=== PATIENT | male | born 1975 | race African-American/Black ===

== ENCOUNTER 2020-06-01 14:17 | Inpatient (IN) | payer MEDICARE ==
[~2020-06-01] VITALS: Ht 182.9 cm; Wt 80.3 kg
[2020-06-01] MEDS ORDERED: MORPHINE SULFATE 4 MG/ML, 1ML IVPush PRN (15:30)
[2020-06-01 15:45] LABS: BASOPHILS # (AUTO) 0.03 x10^3/uL (0-0.1); BASOPHILS % (AUTO) 1 % (0-1); EOSINOPHILS # (AUTO) 0.06 x10^3/uL (0-0.4); EOSINOPHILS % (AUTO) 1 % (1-7); LYMPHOCYTES # (AUTO) 2.16 x10^3/uL (1-3.4); LYMPHOCYTES % (AUTO) 34 % (22-44); MD NO; MEAN CORPUSCULAR HEMOGLOBIN 27.1 pg (27.5-34.5); MEAN CORPUSCULAR HGB CONC 32.7 g/dL (33.2-36.2); MEAN CORPUSCULAR VOLUME 82.9 fL (81-97); MEAN PLATELET VOLUME 9.1 fL (7.4-10.4); MONOCYTES # (AUTO) 0.47 x10^3/uL (0.2-0.8); MONOCYTES % (AUTO) 8 % (2-9); NEUTROPHILS # (AUTO) 3.56 x10^3/uL (1.8-6.8); NEUTROPHILS % (AUTO) 57 % (42-75); PLATELET COUNT 231 x10^3/uL (130-400); RED BLOOD COUNT 4.03 x10^6/uL (4.38-5.82); RED CELL DISTRIBUTION WIDTH 16.3 % (9.4-14.8)
--- NOTE | 2020-06-01 15:50 | NUR ---
TASK RN. LAB AT BEDSIDE. PT AWAITING CT. REPORTS 04/16 HEAD PAIN, TO MEDICATE PER MD ORDERS. CALL LIGHT IN REACH. FALL PRECAUTIONS IN PLACE. REG AT BEDSIDE
[2020-06-01 15:57] LABS: ANION GAP 10 mmol/L (5-15); CALCIUM 9.3 mg/dL (8.5-10.1); CHLORIDE 112 mmol/L (98-107)
[2020-06-01] MEDS ORDERED: ONDANSETRON 2MG/ML, 2ML IVPush ONE (16:00)
[2020-06-01] MEDS ORDERED: ONDANSETRON 2MG/ML, 2ML ONE (16:00)
[2020-06-01] MEDS ORDERED: MORPHINE SULFATE 4 MG/ML, 1ML ONE (16:00)
[2020-06-01 16:01] LABS: ALANINE AMINOTRANSFERASE 17 U/L (12-78); ALKALINE PHOSPHATASE 168 U/L (45-117); BILIRUBIN,TOTAL 0.8 mg/dL (0.2-1.0); CREATININE 2.97 mg/dL (0.7-1.3); TOTAL PROTEIN 8.3 g/dL (6.4-8.2)
--- NOTE | 2020-06-01 16:13 | NUR ---
TASK RN. PT MEDICATED NOTED IN EMAR FOR 04/16 PAIN. RESTING IN POSITION OF COMFORT. DENIES NEED TO USE RESTROOM. VSS. SR ON MONITOR. CALL LIGHT IN REACH. FALL PRECAUTIONS IN PLACE. AWAITING CT.
--- NOTE | 2020-06-01 16:17 | NUR ---
TASK RN. PT TO CT
[2020-06-01] MEDS ORDERED: SODIUM CHLORIDE FLUSH 10ML SYR IVF ONE (16:30)
--- NOTE | 2020-06-01 16:38 | NUR ---
TASK RN CONT TO ASSIST PRIMARY RN YOHANA. PT BACK FROM CT. REPORTS PAIN "MUCH BETTER." RATES PAIN 5-6/10. LIGHTS REMAIN DIMMED FOR COMFORT. AWAITING RECHECK. VSS. SR ON MONITOR. DENIES NEED TO USE RESTROOM. CALL LIGHT IN REACH. FALL PRECUATIONS IN PLACE.
--- NOTE | 2020-06-01 17:32 | NUR ---
Patients medical records from [facility] requestedd. Conformation from fax recveived and placed with chart.
[2020-06-01] MEDS ORDERED: ATOR40TA78 PO (17:56)
[2020-06-01] MEDS ORDERED: METO200T47 PO (17:56)
[2020-06-01] MEDS ORDERED: GABA300C PO (17:56)
[2020-06-01] MEDS ORDERED: LISI-167 PO (17:56)
[2020-06-01] MEDS ORDERED: FLUC200T4 PO (17:56)
[2020-06-01] MEDS ORDERED: VORI200T2 PO (17:56)
[2020-06-01] MEDS ORDERED: SODIUM CHLORIDE FLUSH 10ML SYR IVF PRN (18:30)
[2020-06-01] MEDS ORDERED: IBUPROFEN 600 MG TABLET PO PRN (20:00)
[2020-06-01] MEDS ORDERED: BISACODYL 10 MG SUPP PR PRN (20:00)
[2020-06-01] MEDS ORDERED: HYDROmorphone 2 MG/ML, 1ML IVPush PRN (20:00)
[2020-06-01] MEDS ORDERED: GABAPENTIN 300 MG CAPSULE PO PRN (20:00)
[2020-06-01] MEDS ORDERED: ONDANSETRON 2MG/ML, 2ML IVPush PRN (20:00)
[2020-06-01 20:47] VITALS: BP 126/78
[2020-06-01] MEDS ORDERED: FLUCONAZOLE 200 MG TABLET PO SCH (21:00)
[2020-06-01] MEDS: METOPROLOL SUCCINATE 100 MG TAB.ER.24H PO SCH (22:15)
[2020-06-01] MEDS: ATORVASTATIN 20 MG TABLET PO SCH (22:27)
[2020-06-01] MEDS: VORICONAZOLE 200 MG TABLET PO SCH (22:28)
[2020-06-01] MEDS: POTASSIUM CHLORIDE 20 MEQ in LACTATED RINGERS 1,000 ML IV SCH (22:28)
[2020-06-01] MEDS ORDERED: VORICONAZOLE MC SCH (22:30)
[2020-06-01] MEDS ORDERED: FLUCONAZOLE MC SCH (22:30)
[2020-06-01 22:54] LABS: ANION GAP 11 mmol/L (5-15); CALCIUM 9.4 mg/dL (8.5-10.1); CHLORIDE 115 mmol/L (98-107); CREATININE 2.71 mg/dL (0.7-1.3)
[2020-06-02 00:21] VITALS: BP 112/72
[2020-06-02 06:16] LABS: ALANINE AMINOTRANSFERASE 14 U/L (12-78); ALBUMIN 3.4 g/dL (3.4-5.0); ANION GAP 8 mmol/L (5-15); CALCIUM 8.7 mg/dL (8.5-10.1); CHLORIDE 116 mmol/L (98-107); CREATININE 2.77 mg/dL (0.7-1.3)
[2020-06-02 06:18] LABS: ALKALINE PHOSPHATASE 142 U/L (45-117); BILIRUBIN,TOTAL 0.3 mg/dL (0.2-1.0); TOTAL PROTEIN 7.2 g/dL (6.4-8.2)
[2020-06-02 07:05] VITALS: BP 106/63
[2020-06-02 08:50] VITALS: BP 112/77
[2020-06-02] MEDS: LISINOPRIL 10 MG TABLET PO SCH (09:00)
[2020-06-02] MEDS: VORICONAZOLE 200 MG TABLET PO SCH ×2 (09:00→20:41)
[2020-06-02] MEDS ORDERED: ACETAMINOPHEN 325 MG TABLET PO PRN (09:30)
[2020-06-02] MEDS: METOPROLOL SUCCINATE 100 MG TAB.ER.24H PO SCH ×2 (09:58→20:44)
[2020-06-02] MEDS: OXYcodone/APAP 5/325MG TABLET PO PRN ×3 (10:07→23:36)
[2020-06-02] MEDS: POTASSIUM CHLORIDE 20 MEQ in LACTATED RINGERS 1,000 ML IV SCH (13:28)
[2020-06-02 14:07] VITALS: BP 109/68
[2020-06-02 20:30] VITALS: BP 127/81
[2020-06-02] MEDS: ATORVASTATIN 20 MG TABLET PO SCH (20:43)
[2020-06-03 00:40] VITALS: BP 110/74
[2020-06-03 06:44] LABS: BASOPHILS # (AUTO) 0.03 x10^3/uL (0-0.1); BASOPHILS % (AUTO) 1 % (0-1); EOSINOPHILS # (AUTO) 0.18 x10^3/uL (0-0.4); EOSINOPHILS % (AUTO) 3 % (1-7); LYMPHOCYTES # (AUTO) 2.56 x10^3/uL (1-3.4); LYMPHOCYTES % (AUTO) 45 % (22-44); MD NO; MEAN CORPUSCULAR HEMOGLOBIN 27.2 pg (27.5-34.5); MEAN CORPUSCULAR HGB CONC 32.3 g/dL (33.2-36.2); MEAN CORPUSCULAR VOLUME 84.2 fL (81-97); MEAN PLATELET VOLUME 9.7 fL (7.4-10.4); MONOCYTES # (AUTO) 0.44 x10^3/uL (0.2-0.8); MONOCYTES % (AUTO) 8 % (2-9); NEUTROPHILS # (AUTO) 2.53 x10^3/uL (1.8-6.8); NEUTROPHILS % (AUTO) 44 % (42-75); PLATELET COUNT 200 x10^3/uL (130-400); RED BLOOD COUNT 3.98 x10^6/uL (4.38-5.82); RED CELL DISTRIBUTION WIDTH 16.7 % (9.4-14.8)
[2020-06-03 06:46] LABS: ANION GAP 6 mmol/L (5-15); CALCIUM 9.2 mg/dL (8.5-10.1); CHLORIDE 114 mmol/L (98-107); CREATININE 2.46 mg/dL (0.7-1.3)
[2020-06-03 08:47] VITALS: BP 124/97
[2020-06-03] MEDS: METOPROLOL SUCCINATE 100 MG TAB.ER.24H PO SCH ×2 (09:21→20:14)
[2020-06-03] MEDS: VORICONAZOLE 200 MG TABLET PO SCH ×2 (09:22→20:14)
[2020-06-03] MEDS: OXYcodone/APAP 5/325MG TABLET PO PRN ×2 (09:23→15:57)
[2020-06-03] MEDS: LISINOPRIL 10 MG TABLET PO SCH (09:23)
[2020-06-03 15:49] VITALS: BP 127/84
[2020-06-03 18:46] VITALS: BP 124/79
[2020-06-03] MEDS: ATORVASTATIN 20 MG TABLET PO SCH (20:14)
[2020-06-03 20:27] LABS: BASOPHILS # (AUTO) 0.03 x10^3/uL (0-0.1); BASOPHILS % (AUTO) 1 % (0-1); EOSINOPHILS # (AUTO) 0.06 x10^3/uL (0-0.4); EOSINOPHILS % (AUTO) 1 % (1-7); LYMPHOCYTES % (AUTO) 39 % (22-44); MD NO; MEAN CORPUSCULAR HEMOGLOBIN 27.1 pg (27.5-34.5); MEAN CORPUSCULAR HGB CONC 32.4 g/dL (33.2-36.2); MEAN CORPUSCULAR VOLUME 83.6 fL (81-97); MEAN PLATELET VOLUME 9.3 fL (7.4-10.4); MONOCYTES # (AUTO) 0.32 x10^3/uL (0.2-0.8); MONOCYTES % (AUTO) 6 % (2-9); NEUTROPHILS # (AUTO) 3.02 x10^3/uL (1.8-6.8); NEUTROPHILS % (AUTO) 54 % (42-75); PLATELET COUNT 248 x10^3/uL (130-400); RED BLOOD COUNT 4.37 x10^6/uL (4.38-5.82); RED CELL DISTRIBUTION WIDTH 16.5 % (9.4-14.8)
[2020-06-03 20:35] LABS: ALANINE AMINOTRANSFERASE 15 U/L (12-78); ANION GAP 6 mmol/L (5-15); CALCIUM 9.7 mg/dL (8.5-10.1); CHLORIDE 112 mmol/L (98-107); CREATININE 2.33 mg/dL (0.7-1.3)
[2020-06-03 20:37] LABS: ALKALINE PHOSPHATASE 168 U/L (45-117); BILIRUBIN,TOTAL 0.4 mg/dL (0.2-1.0); TOTAL PROTEIN 8.6 g/dL (6.4-8.2)
[2020-06-03] MEDS ORDERED: BUTALB/APAP/CAFFEINE 50MG/325MG/40MG PO PRN (21:30)
[2020-06-04 00:26] VITALS: BP 114/79
[2020-06-04 08:55] VITALS: BP 131/78
[2020-06-04] MEDS: OXYcodone/APAP 5/325MG TABLET PO PRN ×3 (08:58→22:49)
[2020-06-04] MEDS: METOPROLOL SUCCINATE 100 MG TAB.ER.24H PO SCH ×2 (08:58→20:44)
[2020-06-04] MEDS: LISINOPRIL 10 MG TABLET PO SCH (08:58)
[2020-06-04] MEDS: VORICONAZOLE 200 MG TABLET PO SCH ×2 (08:58→22:43)
[2020-06-04 14:45] VITALS: BP 126/83
[2020-06-04 19:38] VITALS: BP 121/80
[2020-06-04] MEDS: ATORVASTATIN 20 MG TABLET PO SCH (20:44)
[2020-06-05 01:38] VITALS: BP 113/70
[2020-06-05] MEDS ORDERED: ONDANSETRON ODT 4 MG PO PRN (08:00)
[2020-06-05 08:35] LABS: ANION GAP 6 mmol/L (5-15); CALCIUM 9.6 mg/dL (8.5-10.1); CHLORIDE 110 mmol/L (98-107)
[2020-06-05 08:36] LABS: CREATININE 2.51 mg/dL (0.7-1.3)
[2020-06-05] MEDS: METOPROLOL SUCCINATE 100 MG TAB.ER.24H PO SCH ×2 (09:05→20:26)
[2020-06-05] MEDS: LISINOPRIL 10 MG TABLET PO SCH (09:05)
[2020-06-05] MEDS: VORICONAZOLE 200 MG TABLET PO SCH ×2 (09:05→20:27)
[2020-06-05] MEDS: OXYcodone/APAP 5/325MG TABLET PO PRN ×3 (09:10→20:27)
[2020-06-05 09:21] VITALS: BP 110/62
[2020-06-05 13:03] VITALS: BP 123/85
[2020-06-05 18:30] VITALS: BP 127/78
[2020-06-05] MEDS: ATORVASTATIN 20 MG TABLET PO SCH (20:27)
[2020-06-06 02:52] VITALS: BP 127/79
[2020-06-06 08:25] VITALS: BP 115/76
[2020-06-06] MEDS: VORICONAZOLE 200 MG TABLET PO SCH ×2 (08:52→20:14)
[2020-06-06] MEDS: LISINOPRIL 10 MG TABLET PO SCH (08:52)
[2020-06-06] MEDS: METOPROLOL SUCCINATE 100 MG TAB.ER.24H PO SCH ×2 (08:53→20:15)
[2020-06-06] MEDS: OXYcodone/APAP 5/325MG TABLET PO PRN ×2 (12:52→20:15)
[2020-06-06 15:41] VITALS: BP 123/77
[2020-06-06 20:10] VITALS: BP 133/89
[2020-06-06] MEDS: ATORVASTATIN 20 MG TABLET PO SCH (20:14)
[2020-06-07 01:31] VITALS: BP 107/69
[2020-06-07 06:42] LABS: HCT (SEDRATE) 37.9 % (39.2-51.8)
[2020-06-07 06:44] LABS: MEAN CORPUSCULAR HEMOGLOBIN 27.1 pg (27.5-34.5); MEAN CORPUSCULAR HGB CONC 32.2 g/dL (33.2-36.2); MEAN CORPUSCULAR VOLUME 83.9 fL (81-97); MEAN PLATELET VOLUME 9.3 fL (7.4-10.4); PLATELET COUNT 205 x10^3/uL (130-400); RED BLOOD COUNT 4.53 x10^6/uL (4.38-5.82); RED CELL DISTRIBUTION WIDTH 16.1 % (9.4-14.8)
[2020-06-07 06:52] LABS: CALCIUM 9.5 mg/dL (8.5-10.1); CHLORIDE 112 mmol/L (98-107)
[2020-06-07 06:57] LABS: ALANINE AMINOTRANSFERASE 12 U/L (12-78); ALBUMIN 3.6 g/dL (3.4-5.0); ALKALINE PHOSPHATASE 161 U/L (45-117); ANION GAP 6 mmol/L (5-15); BILIRUBIN,TOTAL 0.3 mg/dL (0.2-1.0); C-REACTIVE PROTEIN, QUANT 0.69 mg/dL (0.02-0.49); CREATININE 2.78 mg/dL (0.7-1.3); TOTAL PROTEIN 7.8 g/dL (6.4-8.2)
[2020-06-07 07:15] LABS: MD YES
[2020-06-07 07:17] LABS: <PLATELET ESTIMATE> ADEQUATE; <PLT MORPHOLOGY> NORMAL PLT MORPH; ANISOCYTOSIS 1+; EOS#(MANUAL) 0.23 x10^3/uL (0.0-0.4); EOS% (MANUAL) 4 % (1-7); LYMPH#(MANUAL) 3.31 x10^3/uL (1-3.4); LYMPHS% (MANUAL) 58 % (22-44); MONOS#(MANUAL) 0.34 x10^3/uL (0.3-2.7); MONOS% (MANUAL) 6 % (2-9); SEG#(MANUAL) 1.82 x10^3/uL (1.8-6.8); SEGS% (MANUAL) 32 % (42-75)
[2020-06-07 09:13] VITALS: BP 105/72
[2020-06-07] MEDS: LISINOPRIL 10 MG TABLET PO SCH (09:56)
[2020-06-07] MEDS: METOPROLOL SUCCINATE 100 MG TAB.ER.24H PO SCH (09:57)
[2020-06-07] MEDS: VORICONAZOLE 200 MG TABLET PO SCH (09:58)
[2020-06-07 10:00] VITALS: BP 115/78
[2020-06-07 14:52] VITALS: BP 117/80
== END 2020-06-07 17:07 | disposition home or self-care (01) | DRG 97 ==
LOC: ED 15:57 → 3N 20:43
PROVIDERS: ADMIT Internal Medicine; ATTEND Internal Medicine
DX: B38.4 Coccidioidomycosis meningitis (principal); N17.0 Acute kidney failure with tubular necrosis; N18.4 Chronic kidney disease, stage 4 (severe); R73.9 Hyperglycemia, unspecified; E16.2 Hypoglycemia, unspecified; E78.5 Hyperlipidemia, unspecified; F12.90 Cannabis use, unspecified, uncomplicated; G03.1 Chronic meningitis; G43.909 Migraine, unspecified, not intractable, without status migrainosus; D63.8 Anemia in other chronic diseases classified elsewhere; I12.9 Hypertensive chronic kidney disease with stage 1 through stage 4 chronic kidney disease, or unspecified chronic kidney disease; Z80.0 Family history of malignant neoplasm of digestive organs; Z87.891 Personal history of nicotine dependence
CPT/HCPCS: 36415; 70250; 70450; 71045; 72040; 74018; 80048; 80053; 80299; 83605; 83735; 85025; 85651; 86140; 86635; 87040; 96374; 96375; 99285; G0378; J2405; J3480; Q0162; J2270; J7120